=== PATIENT | male | born 1965 | race Caucasian/White ===

== ENCOUNTER 2021-12-29 12:24 | Observation (INO) ==
[2021-12-29] MEDS ORDERED: Melatonin 3 MG TABLET PO PRN (16:56)
[2021-12-29] MEDS ORDERED: Ondansetron ODT 4 MG TAB.RAPDIS SL PRN (16:56)
[2021-12-29] MEDS ORDERED: Naloxone 0.4 MG/ML INJ IVP PRN (16:56)
[2021-12-29] MEDS ORDERED: *HR* LORazepam 1 MG TABLET PO PRN (18:47)
[2021-12-29] MEDS ORDERED: *HR* Promethazine 25 MG/ML VIAL IM PRN (18:47)
[2021-12-29] MEDS: Nicotine 21 MG PATCH.TD24 TD SCH (19:29)
[2021-12-29] MEDS: Ringers Solution, Lactated 1,000 ML IVC SCH (19:29)
[2021-12-29] MEDS: Acetaminophen 325 MG TABLET PO PRN (21:19)
[2021-12-30] MEDS: Acetaminophen 325 MG TABLET PO PRN ×2 (01:51→07:42)
[2021-12-30 05:18] LABS: Hematocrit 45.1 % (37.5-50.1); Hemoglobin 15.3 g/dL (12.9-16.9); Mean Corpuscular HGB Conc 33.9 g/dL (31.6-35.5); Mean Corpuscular Hemoglobin 29.2 pg (28.0-33.3); Mean Corpuscular Volume 86.1 fL (83.0-100.0); Platelet Count 190 K/mcL (140-400); Red Blood Count 5.24 M/mcL (4.19-5.50); Red Cell Distribution Width 17.4 % (11.5-14.5); White Blood Count 8.3 K/mcL (4.3-11.1)
[2021-12-30 05:36] LABS: Alanine Aminotransferase 18 Units/L (7-52); Albumin 3.9 g/dL (3.5-5.7); Albumin/Globulin Ratio 1.8 (1.1-2.2); Alkaline Phosphatase 48 Units/L (34-104); Aspartate Amino Transferase 26 Units/L (13-39); BUN/Creatinine Ratio 15 (6-26); Bilirubin,Total 0.7 mg/dL (0.3-1.0); Blood Urea Nitrogen 9 mg/dL (6-20); Carbon Dioxide 27 mEq/L (23-29); Chloride 99 mEq/L (98-107); Globulin 2.2 g/dL (2.4-3.5); Glucose 83 mg/dL (70-105); Osmolality,Calculated 270 (280-300); Potassium 4.1 mEq/L (3.5-5.1); Sodium 131 mEq/L (136-145); Total Protein 6.1 g/dL (6.4-8.9)
[2021-12-30] MEDS: Ringers Solution, Lactated 1,000 ML IVC SCH (05:42)
[2021-12-30] MEDS: Nicotine 21 MG PATCH.TD24 TD SCH (07:43)
[2021-12-30] MEDS ORDERED: Vitamin B Complex/Vit C/Vit E 1 EACH TABLET PO SCH (09:00)
[2021-12-30] MEDS ORDERED: Folic Acid 1 MG TABLET PO SCH (09:00)
[2021-12-30] MEDS ORDERED: Thiamine (B-1) 100 MG TABLET PO SCH (09:00)
[2021-12-30] MEDS ORDERED: E-Z-PAQUE (BARIUM SULF) SUSP 1 BOTTLE PO ONE (10:38)
[2021-12-30 11:48] VITALS: BP 110/75; TEMP 98.1
[2021-12-30 12:26] VITALS: PULSE 82; O2SAT 92
== END 2021-12-30 16:12 | disposition home or self-care (01) ==
LOC: EMEROOARM 12:24 → 3ANU 12:24
PROVIDERS: ADMIT Internal Medicine; ATTEND Internal Medicine